=== PATIENT | male | born 1955 ===

== ENCOUNTER 2021-07-11 14:13 | Emergency (ER) | payer SELFPAY ==
[2021-07-11] MEDS ORDERED: Sodium Chloride 0.9% 10 ML Syringe FLUSH PRN (14:29)
[2021-07-11 15:38] LABS: ANION GAP 14.9 mEq/L (7-13); CHLORIDE,CL 101 mmol/L (98-107); SODIUM,NA 138 mmol/L (136-145)
== END 2021-07-11 16:10 | disposition home or self-care (01) ==
LOC: DL.ED 14:13
DX: J18.9 Pneumonia, unspecified organism (principal)
CPT/HCPCS: 36415; 71045; 80053; 80307; 82150; 83690; 83735; 83880; 84443; 84484; 85025; 93005; 99285-25